=== PATIENT | female | born 1955 | race Hispanic/Latino ===

== ENCOUNTER 2017-07-01 18:32 | Emergency (ER) | payer SELFPAY ==
[2017-07-01] MEDS ORDERED: IBUPROFEN 400 MG TABLET ONE (19:01)
== END 2017-07-01 19:53 | disposition home or self-care (01) ==
LOC: EDH 18:32
DX: S80.872A Other superficial bite, left lower leg, initial encounter (principal); I10 Essential (primary) hypertension; E11.9 Type 2 diabetes mellitus without complications; M81.0 Age-related osteoporosis without current pathological fracture; Z72.0 Tobacco use; W54.0XXA Bitten by dog, initial encounter; Y93.89 Activity, other specified; Y92.89 Other specified places as the place of occurrence of the external cause; Y99.8 Other external cause status
CPT/HCPCS: 73590